=== PATIENT | male | born 1970 | race African-American/Black ===

== ENCOUNTER 2018-10-02 16:08 | Emergency (ER) | payer MEDICAID ==
[~2018-10-02] VITALS: Ht 177.8 cm; Wt 80.0 kg
[2018-10-02 16:33] VITALS: BP 151/113
== END 2018-10-03 06:21 | disposition left against medical advice (07) ==
LOC: ER 16:08
DX: R11.10 Vomiting, unspecified (principal); Z53.21 Procedure and treatment not carried out due to patient leaving prior to being seen by health care provider

== ENCOUNTER 2020-04-12 15:21 | Inpatient (IN) | payer MEDICAID ==
[~2020-04-12] VITALS: Ht 172.7 cm; Wt 71.3 kg
[2020-04-12 16:45] LABS: BASOPHILS % 0.4 % (0.0-2.0); EOSINOPHILS % 0.8 % (0.0-5.0); HEMATOCRIT. 44.8 % (42.0-52.0); HEMOGLOBIN. 15.4 g/dL (14.0-18.0); LYMPHOCYTES % 8.8 % (20.0-50.0); MEAN CORPUSCULAR VOLUME 110.8 fL (80.0-94.0); MEAN PLATELET VOLUME 8.1 fl (7.4-10.4); MONOCYTES % 12.4 % (2.0-8.0); NEUTROPHILS % 77.6 % (40.0-76.0); PLATELET 194 x1000/uL (130-400); RED BLOOD CELL COUNT 4.05 mill/uL (4.7-6.1); RED CELL DISTRIBUTION WIDTH 14.2 % (11.6-14.6)
[2020-04-12 16:56] LABS: CHLORIDE 99 mEq/L (98-107)
[2020-04-12 17:08] LABS: PLATELET ESTIMATE NORMAL
[2020-04-12] MEDS ORDERED: MORPHINE SULFATE 4 MG/ML CPJ (NOT FOR IM USE) IV STA (17:37)
[2020-04-12] MEDS ORDERED: ONDANSETRON HCL 4MG/2ML INJ IV STA (17:37)
[2020-04-12 17:41] LABS: CLARITY URINE CLEAR (CLEAR); COLOR URINE ORANGE (YELLOW); KETONES URINE 4+ (NEGATIVE); LEUKOCYTE ESTERASE URINE TRACE (NEGATIVE); NITRITE URINE NEGATIVE (NEGATIVE); OCCULT BLOOD URINE 1+ (NEGATIVE); PH URINE 5.5 (4.5-8.0); PROTEIN URINE 2+ (NEGATIVE)
[2020-04-12] MEDS ORDERED: SODIUM CHLORIDE 0.9% 1,000 ML IV ONE (17:45)
[2020-04-12] MEDS ORDERED: MORPHINE SULFATE 2 MG/ML CPJ (NOT FOR IM USE) IV NR (21:00)
[2020-04-12] MEDS: DEXT 5%/0.45% NACL 1000ML 1,000 ML IV SCH (23:05)
[2020-04-12] MEDS: ONDANSETRON HCL 4MG/2ML INJ IV PRN (23:23)
[2020-04-12] MEDS: HYDROMORPHONE HCL/PF 2MG/ML CPJ IV PRN (23:27)
[2020-04-13] VITALS (8 sets, daily range): BP systolic 134–159; BP diastolic 73–103
[2020-04-13] MEDS: PANTOPRAZOLE SODIUM 40 MG/VIAL IV SCH ×2 (00:28→08:52)
[2020-04-13] MEDS: HYDROMORPHONE HCL/PF 2MG/ML CPJ IV PRN ×7 (01:41→20:13)
[2020-04-13] MEDS ORDERED: NAPR-677 MT (01:52)
[2020-04-13 08:50] LABS: HEMATOCRIT. 41.1 % (42.0-52.0); MEAN CORPUSCULAR HEMOGLOBIN 38.2 pg (28.0-32.0); MEAN CORPUSCULAR VOLUME 111.9 fL (80.0-94.0); MEAN PLATELET VOLUME 8.9 fl (7.4-10.4); PLATELET 163 x1000/uL (130-400); RED BLOOD CELL COUNT 3.67 mill/uL (4.7-6.1); RED CELL DISTRIBUTION WIDTH 14.2 % (11.6-14.6)
[2020-04-13 09:00] LABS: CHLORIDE 103 mEq/L (98-107)
[2020-04-13] MEDS: DEXT 5%/0.45% NACL 1000ML 1,000 ML IV SCH ×2 (11:55→23:55)
[2020-04-13] MEDS: ONDANSETRON HCL 4MG/2ML INJ IV PRN (20:13)
[2020-04-14] VITALS: BP 138/80
[2020-04-14 00:40] LABS: PLATELET ESTIMATE NORMAL
[2020-04-14] MEDS: HYDROMORPHONE HCL/PF 2MG/ML CPJ IV PRN ×3 (02:05→19:31)
[2020-04-14] MEDS: ONDANSETRON HCL 4MG/2ML INJ IV PRN (02:05)
[2020-04-14 04:00] VITALS: BP 134/80
[2020-04-14 06:43] LABS: HEMATOCRIT. 47.1 % (42.0-52.0); HEMOGLOBIN. 15.8 g/dL (14.0-18.0); MEAN CORPUSCULAR HEMOGLOBIN 37.6 pg (28.0-32.0); MEAN CORPUSCULAR VOLUME 112.1 fL (80.0-94.0); MEAN PLATELET VOLUME 8.5 fl (7.4-10.4); PLATELET 161 x1000/uL (130-400); RED CELL DISTRIBUTION WIDTH 14.5 % (11.6-14.6)
[2020-04-14 06:56] LABS: CHLORIDE 104 mEq/L (98-107)
[2020-04-14 07:05] LABS: AMYLASE 59 IU/L (25-115)
[2020-04-14 07:24] LABS: HEPATITIS B SURFACE ANTIGEN NEGATIVE
[2020-04-14 07:54] LABS: HEPATITIS A AB IGM NEGATIVE (NEGATIVE)
[2020-04-14] MEDS: PANTOPRAZOLE SODIUM 40 MG/VIAL IV SCH (09:13)
[2020-04-14] MEDS ORDERED: DILTIAZEM HCL 5MG/ML 5ML VIAL IV SCH (11:00)
[2020-04-14 12:00] VITALS: BP 121/81
[2020-04-14 17:58] LABS: PLATELET ESTIMATE NORMAL
[2020-04-14 20:00] VITALS: BP 124/81
[2020-04-15] VITALS: BP 118/80
[2020-04-15] MEDS: DEXT 5%/0.45% NACL 1000ML 1,000 ML IV SCH (03:49)
[2020-04-15 04:00] VITALS: BP 140/81
[2020-04-15 07:11] LABS: CHLORIDE 98 mEq/L (98-107)
[2020-04-15 07:24] LABS: AMYLASE 36 IU/L (25-115)
[2020-04-15 08:00] VITALS: BP 130/85
[2020-04-15] MEDS: PANTOPRAZOLE SODIUM 40 MG/VIAL IV SCH (09:58)
[2020-04-15] MEDS: SODIUM CHLORIDE 0.9% 1,000 ML IV SCH ×2 (10:00→20:20)
[2020-04-15 12:00] VITALS: BP 124/88
[2020-04-15] MEDS: DILTIAZEM HCL 30MG TABLET PO SCH ×3 (13:35→23:41)
[2020-04-15 16:00] VITALS: BP 124/82
[2020-04-15 17:55] LABS: TOTAL IRON BINDING CAPACITY 381 ug/dL (250-450)
[2020-04-15 19:39] LABS: FOLIC ACID (FOLATE) SERUM 6.8 ng/mL (>5.38)
[2020-04-15 20:00] VITALS: BP 114/78
[2020-04-16] VITALS: BP 115/66
[2020-04-16 04:00] VITALS: BP 110/72
[2020-04-16] MEDS: DILTIAZEM HCL 30MG TABLET PO SCH ×2 (05:46→12:06)
[2020-04-16 08:00] VITALS: BP 104/57
[2020-04-16 08:17] LABS: BASOPHILS % 0.2 % (0.0-2.0); EOSINOPHILS % 1.1 % (0.0-5.0); HEMATOCRIT. 33.9 % (42.0-52.0); HEMOGLOBIN. 11.5 g/dL (14.0-18.0); LYMPHOCYTES % 7.1 % (20.0-50.0); MEAN CORPUSCULAR HEMOGLOBIN 37.3 pg (28.0-32.0); MEAN CORPUSCULAR VOLUME 110.2 fL (80.0-94.0); MEAN PLATELET VOLUME 8.1 fl (7.4-10.4); MONOCYTES % 9.4 % (2.0-8.0); NEUTROPHILS % 82.2 % (40.0-76.0); PLATELET 159 x1000/uL (130-400); RED BLOOD CELL COUNT 3.07 mill/uL (4.7-6.1); RED CELL DISTRIBUTION WIDTH 14.1 % (11.6-14.6)
[2020-04-16 08:38] LABS: CHLORIDE 99 mEq/L (98-107)
[2020-04-16] MEDS: PANTOPRAZOLE SODIUM 40 MG/VIAL IV SCH (09:22)
[2020-04-16] MEDS: SODIUM CHLORIDE 0.9% 1,000 ML IV SCH (10:06)
[2020-04-16] MEDS ORDERED: POTASSIUM CHLORIDE 20MEQ TABLET SR PO NR (11:00)
[2020-04-16 12:00] VITALS: BP 120/83
[2020-04-16] MEDS ORDERED: CYANOCOBALAMIN 1000MCG/ML VIAL IM SCH (12:30)
[2020-04-17] MEDS ORDERED: FAMOTIDINE 20MG/2ML VIAL IV SCH (09:00)
== END 2020-04-16 14:10 | disposition home or self-care (01) | DRG 282 ==
LOC: ER 15:21 → 8WST 20:17 → EDBEDREQSVC 20:21 → EDBEDREQTM 20:21 → ENRESERV 22:08
PROVIDERS: ADMIT Hospitalist; ATTEND Hospitalist
DX: K85.10 Biliary acute pancreatitis without necrosis or infection (principal); E87.1 Hypo-osmolality and hyponatremia; M10.9 Gout, unspecified; M19.90 Unspecified osteoarthritis, unspecified site; D63.8 Anemia in other chronic diseases classified elsewhere; K76.0 Fatty (change of) liver, not elsewhere classified; R74.01 Elevation of levels of liver transaminase levels; R00.0 Tachycardia, unspecified; Z90.49 Acquired absence of other specified parts of digestive tract
CPT/HCPCS: 36415; 71045; 74176; 74181; 80053; 81003; 82150; 82607; 82728; 82746; 83540; 83550; 84484; 85025; 86705; 86709; 86803; 87340; 93005; 96374; 99285; C1893; C9113; J1170; J2270; J2405; J3420; J3490; J7030